=== PATIENT | male | born 2000 | race Caucasian/White ===

== ENCOUNTER 2020-09-07 22:00 | Emergency (ER) | payer OTHER, SELFPAY ==
--- NOTE | ~2020-09-07 | XR_ITS ---
EXAMINATION: XR chest 2V DATE: 09/07/2020 22:28 INDICATION: Right-sided pleuritic chest pain TECHNIQUE: PA and lateral views of the chest are obtained. COMPARISON: None available FINDINGS: There is a retrocardiac opacity of the left lower lobe. There is no pleural effusion or pne umothorax. The cardiomediastinal silhouette is normal. The visualized bones and soft tissues are unre markable. IMPRESSION: 1. Retrocardiac opacity of the left lower lobe likely infectious or inflammatory. Recommend followup radiographs in 10-14 days after appropriate therapy to evaluate for improvement/resolution. Reviewed, dictated and finalized at location [facility]. [employer] IMPRESSION: 1. Retrocardiac opacity of the left lower lobe likely infectious or inflammator y. Recommend followup radiographs in 10-14 days after appropriate therapy to ev aluate for improvement/resolution.
[2020-09-07 22:20] VITALS: BP 138/81; PULSE 100; RESP 18; TEMP 36.8; O2SAT 100
--- NOTE | 2020-09-07 22:40 | ED.CHESTPAIN ---
HPI - Chest Pain General Chief Complaint: Chest Pain Stated Complaint: right side pain Time Seen by Provider: 09/07/20 22:00 Source: patient Mode of arrival: ambulatory Limitations: no limitations History of Present Illness HPI narrative: 19-year-old man is previously will comes in today complaining of right-sided pleuritic chest pain that started about 8 days ago. Two days ago he had a workup by a surgeon which included ultrasound and HIDA scan which was normal. Patient states that the pain persists and is worse when he takes a deep breath. He denies injury, cough or cold symptoms, nausea, vomiting, sore throat, diarrhea, fever, hemoptysis, and prior similar symptoms. MD complaint: chest pain Onset (ago): day(s) (8) Timing of current episode: episodic and daily Prior episodes: No Pain location: right chest Pain radiation: none Quality: sharp Relieving factors: rest Exacerbating factors: inspiration Treatment prior to arrival: none Related Data Allergies Allergy/AdvReac Type Severity Reaction Status Date / Time clarithromycin [From Biaxin] Allergy Unknown Verified 09/07/20 22:19 Sulfa (Sulfonamide Allergy Unknown Verified 09/07/20 22:19 Antibiotics) Review of Systems Constitutional: Constitutional: Denies body ache(s) and Denies chills Comments: No fever Eyes: Eyes: Denies change in vision and Denies photophobia ENT: Denies otalgia, Denies nasal congestion and Denies sore throat Cardiovascular: Cardiovascular: Reports as per HPI, Reports chest pain, Denies syncope, Denies rapid heart rate and Denies radiating jaw, neck or arm pain Respiratory: Respiratory: Denies chest congestion, Reports cough, Denies hemoptysis and Denies dyspnea Gastrointestinal: Gastrointestinal: Denies abdominal pain, Denies diarrhea, Denies nausea and Denies vomiting Musculoskeletal: Musculoskeletal: Denies arthralgias and Denies joint swelling Integumentary/Breasts: Skin/Breast: Denies erythema, Denies rash and Denies wounds Neurologic: Denies vertigo, Denies dizziness, Denies syncope, Denies headache(s) and Denies focal weakness Hematologic/Lymphatic: Hematologic/Lymphatic: Denies easy bleeding and Denies easy bruising Allergic/Immunologic: Allergic/Immunologic: Denies urticaria, Denies throat swelling and Denies tongue swelling [facility] Surgical History Surgical History (Updated 09/07/20 @ 22:46 by Andrew Nation MD) H/O hernia repair Social History Social History (Updated 09/07/20 @ 22:47 by Andrew Nation MD) Smoking status: Never smoker Substance use type: does not use Living arrangements: with family Exam Const: General: cooperative, no acute distress, alert, awake and Physically active; No ill appearing Orientation/consciousness: patient oriented x3 Limitations: no limitations HENMT: Head: normal to inspection, normocephalic and atraumatic Face and sinus: normal facial exam Mouth: Yes Normal oral and palatal mucosa present Throat: posterior oropharynx normal Eyes: Pupils: Equal, round and reactive pupils present EOM: EOMs intact bilaterally Resp: Effort & Inspection: normal respiratory effort, able to speak in complete sentences and not labored Auscultation: clear to auscultation bilaterally, no rales, no rhonchi and no wheezes Other: Mild tenderness to palpation under the right costal margin. Negative Simons sign. Cardio: Heart sounds: S1 normal heart sound present, S2 normal heart sound present and no murmurs GI: GI Palp: No abdominal tenderness, Yes Soft to palpation and No Tenderness to palpation present (GI) Back/Spine/Pelvis: Back: No erythema and No back tenderness Skin: General skin exam: normal color and turgor normal Lesions: no lesions Rashes: no rashes Neuro: General: tone normal and CN's II-XI intact bilaterally Gait exam (Neuro): Normal gait present Extrem: General: normal to inspection, no joint enlargement, no clubbing, cyanosis or edema and no calf tenderness Psych:
[2020-09-07 22:50] LABS: Basophils Absolute Auto 0.06 K/mm3 (0.00-0.10); Basophils Percent Auto 0.7 % (0.0-1.0); Eosinophils Absolute Auto 0.23 K/mm3 (0.02-0.50); Eosinophils Percent Auto 2.5 % (1.0-6.0); Hematocrit 44.4 % (40.0-54.0); Immature Granulocyte Absolute 0.02 K/mm3 (0.00-0.00); Immature Granulocyte Percent A 0.2 % (0.0-0.0); Lymphocytes Percent Auto 36.3 % (18.0-42.0); Mean Corpuscular HGB Conc 33.8 g/dL (32.0-36.0); Mean Corpuscular Hemoglobin 27.7 pg (27.0-31.0); Mean Corpuscular Volume 82.1 fL (78.0-102.0); Mean Platelet Volume 9.8 fl (8.7-11.0); Monocytes Absolute Auto 0.55 K/mm3 (0.10-0.90); Neutrophils Absolute Auto 4.9 K/mm3 (1.7-7.2); Neutrophils Percent Auto 54.3 % (50.0-70.0); Platelet Count Result 223 K/mm3 (150-420); Red Blood Count 5.41 M/mm3 (4.70-6.10); White Blood Count 9.1 K/mm3 (4.8-10.8)
[2020-09-07 22:54] LABS: Add Urine Microscopic? NO; Appearance Urine Clear (Clear); Bilirubin Urine Negative (Negative); Blood Urine Negative (Negative); Color Urine Yellow (Yellow); Glucose Urine UA Negative (Negative); Ketones Urine Negative (Negative); Leukocyte Esterase Ur Negative (Negative); Nitrate Urine Negative (Negative); Protein Urine Negative (Negative); Urobilinogen Urine 0.2 mg/dL (0.2-1.0); pH Urine 6.5 (5.0-8.0)
[2020-09-07 23:05] LABS: D Dimer 0.19 mg/L (0.19-0.50); INR 1.1; Partial Thromboplastin Time 26.4 SEC (23.90-30.70); Prothrombin Time 11.9 Seconds (9.50-12.10)
[2020-09-07 23:15] VITALS: BP 136/80; PULSE 85; RESP 20; TEMP 36.9; O2SAT 98
== END 2020-09-07 23:20 | disposition home or self-care (01) ==
PROVIDERS: Emergency Provider Emergency Medicine
DX: R07.81 Pleurodynia (principal)
CPT/HCPCS: 36415; 71046; 81003; 85025; 85380; 85610; 85730; 99283